=== PATIENT | female | born 1980 | race American Indian/Alaskan Native ===

== ENCOUNTER 2017-07-09 20:58 | Emergency (ER) | payer MEDICAID, OTHER ==
[2017-07-09] MEDS ORDERED: IPRATROPIUM/ALBUTEROL 3 ML NEB INH STA (21:10)
[2017-07-09] MEDS ORDERED: predniSONE 20 MG TABLET PO STA (21:16)
--- NOTE | 2017-07-09 21:17 | ED Physician Documentation ---
PD HPI DYSPNEA - Stated complaint Stated Complaint: SOA - Chief complaint Chief Complaint: Resp - History obtained from History obtained from: Patient - History of Present Illness Timing - onset: How many days ago (4) Timing - onset during: Rest Timing - details: Gradual onset, Still present Worsened by: Laying flat Associated symptoms: Cough, Wheezing. No: Fever Similar symptoms before: Has not had sx before Recently seen: Not recently seen - Additional information Additional information: Patient is a 37 year old female wiht no significant past medical history who is presenting to the emergency department for cough and chest pressure. patient states that her boyfriend had been sick with the flu, and she has had a persistent cough. Patient denies any fever or chills, exogenous estrogen, cigarette smoking recent travel or history of clots. Patient states that her breathing is worse when she lies flat but denies any exertional component. Review of Systems Constitutional: denies: Fever, Chills Eyes: reports: Reviewed and negative Ears: reports: Reviewed and negative Nose: denies: Rhinorrhea / runny nose, Congestion Throat: denies: Sore throat Cardiac: reports: Chest pain / pressure Respiratory: reports: Cough. denies: Hemoptysis, Wheezing GI: denies: Nausea, Vomiting, Diarrhea : reports: Reviewed and negative Skin: denies: Rash, Lesions Musculoskeletal: denies: Neck pain, Back pain, Extremity pain, Extremity swelling Neurologic: denies: Headache Psychiatric: reports: Reviewed and negative Endocrine: reports: Reviewed and negative Immunocompromised: denies: Immunocompromised PD PAST MEDICAL HISTORY - Present Medications Home Medications: Ambulatory Orders Medication Instructions Recorded Confirmed Albuterol Sulf [Ventolin Hfa 2 puffs INH Q4HR PRN #1 inhaler 07/09/17 Inhaler] predniSONE [Prednisone] 40 mg PO DAILY 5 Days tablet 07/09/17 - Allergies Allergies/Adverse Reactions: Allergies Allergy/AdvReac Type Severity Reaction Status Date / Time No Known Drug Allergies Allergy Verified 07/09/17 21:40 PD ED PE NORMAL - Vitals Vital signs reviewed: Yes - General General: Alert and oriented X 3, No acute distress - HEENT HEENT: Atraumatic, PERRL, Moist mucous membranes - Neck Neck: Supple, no meningeal sign, No JVD - Derm Derm: Normal color, Warm and dry, No rash - Extremities Extremities: No calf tenderness / cord - Neuro Neuro: Alert and oriented X 3, No motor deficit, No sensory deficit Eye Opening: Spontaneous Motor: Obeys Commands Verbal: Oriented GCS Score: 15 - Psych Psych: Normal mood PD ED PE EXPANDED - Cardiac Cardiac: Tachy - Respiratory Respiratory: Wheezing (minimal exertional wheeze) - Abdomen Abdomen: Other (obese) Results - Vitals Vitals: Vital Signs - 24 hr 07/09/17 07/09/17 21:00 22:00 Temperature 37.1 C Heart Rate 109 H 122 H Respiratory 18 18 Rate Blood Pressure 131/69 H O2 Saturation 98 Oxygen O2 Source Room air - EKG (time done) 2106 Rate: Rate (enter#) (109) Rhythm: Sinus tachycardia [place]: Normal Intervals: Normal IN, 2nd degree AVB type 1 Compare to prior EKG: Old EKG unavailable - Rads (name of study) chest x-ray Radiology: Final report received (normal) PD MEDICAL DECISION MAKING - ED course Complexity details: reviewed old records, reviewed results, re-evaluated patient , considered differential, d/w patient ED course: Patient was seen and examined at bedside. ekg was performed and was sinus tach. patient was sent for imaging. When patient returned she was treated with prednisone and duoneb. patient's chest x-ray was within normal limits. Patient responded well to therapy. Prescriptions were written. patient was stable for discharge with outpatient follow up. Departure - Departure Disposition: 01 Home, Self Care Clinical Impression: Bronchitis Instructions: ED Bronchitis Asthmatic Follow-Up: primary,care provider [Other] - Within 1 week Prescriptions: Albuterol Sulf [Ventolin Hfa Inhaler] 2 puffs INH Q4HR PRN #1 inhaler PRN Reason: Wheezing predniSONE [Prednisone] 40 mg PO DAILY 5 Days tablet Comments: Your diagnostics today were within normal limits. there is no sign of pneumonia. Your symptoms are likely viral in nature. Bronchitis can last for weeks at a time. You will be started on a short course of steroids and you can use the inhaler as needed. You can take over the counter cough and cold medications. You should follow up with your doctor if your symptoms persist. You may return to the emergency department at any time for new, worsening or uncontrollable symptoms.
--- NOTE | 2017-07-09 21:49 | XRAY Preliminary Report ---
Exam: XR CHEST 2 VIEW X-RAY IMPRESSION: Normal 2-view chest radiography. [facility] SITE ID: [id number]
--- NOTE | 2017-07-09 21:50 | XRAY Report ---
EXAM: CHEST RADIOGRAPHY EXAM DATE: 07/09/2017 09:46 PM. CLINICAL HISTORY: Productive cough. COMPARISON: None. TECHNIQUE: 2 views. FINDINGS: Lungs/Pleura: No focal opacities evident. No pleural effusion. No pneumothorax. Normal volumes. Mediastinum: Heart and mediastinal contours are unremarkable. Other: None. IMPRESSION: Normal 2-view chest radiography. [facility] Referring Provider Line: [phone] SITE ID: [id number]
[2017-07-09 22:32] VITALS: BP 100/50
== END 2017-07-09 23:00 | disposition home or self-care (01) ==
LOC: ED 20:58
DX: J40 Bronchitis, not specified as acute or chronic (principal); R00.0 Tachycardia, unspecified; I44.1 Atrioventricular block, second degree
CPT/HCPCS: 71046; 93005; 94640; 94664; 99283; 99284; J7512

== ENCOUNTER 2018-04-23 16:17 | Emergency (ER) | payer MEDICAID ==
--- NOTE | 2018-04-23 16:24 | ED Physician Documentation ---
PD HPI LOWER EXT INJURY - Stated complaint Stated Complaint: R TOE PX - History obtained from History obtained from: Patient - History of Present Illness PD HPI LOW EXT INJURY LOCATION: Right, Toe Type of injury: Blunt / blow Where injury occurred: Home Timing - onset: Today Timing - details: Abrupt onset Pain level max: 5 (with walking) Pain level now: 0 Improved by: Rest Worsened by: Moving Associated symptoms: Numbness Review of Systems Constitutional: reports: Reviewed and negative Cardiac: reports: Reviewed and negative Respiratory: reports: Reviewed and negative PD PAST MEDICAL HISTORY - Past Surgical History Past Surgical History: No - Allergies Allergies/Adverse Reactions: Allergies Allergy/AdvReac Type Severity Reaction Status Date / Time No Known Drug Allergies Allergy Verified 04/23/18 16:26 - Social History Does the pt smoke?: No Smoking Status: Never smoker Does the pt drink ETOH?: No Does the pt have substance abuse?: No - Immunizations Immunizations are current?: Yes PD ED PE NORMAL - Vitals Vital signs reviewed: Yes - General General: Alert and oriented X 3, No acute distress - Extremities Extremities: Other (The tip of the right great toe is tender but there is no deformity. She has partial but incomplete numbness especially on the medial side.) - Neuro Neuro: Alert and oriented X 3, Normal speech Results - Vitals Vitals: Vital Signs - 24 hr 04/23/18 16:20 Temperature 36.5 C Heart Rate 75 Respiratory 16 Rate Blood Pressure 151/83 H O2 Saturation 98 Oxygen O2 Source Room air PD MEDICAL DECISION MAKING - ED course ED course: 38-year-old woman with isolated injury to the right great toe without subungual hematoma. X-rays negative. Tim taped and given a fracture shoe. Departure - Departure Disposition: 01 Home, Self Care Clinical Impression: Sprain of toe, great, right Qualifiers: Encounter type: initial encounter Qualified Code(s): S93.501A - Unspecified sprain of right great toe, initial encounter Condition: Good Record reviewed to determine appropriate education?: Yes Instructions: ED Sprain Toe Comments: Tim tape as needed, wear the shoe as needed. Ibuprofen as needed for pain. Follow-up with your doctor in 2 weeks if not better. Your blood pressure was elevated today on check into the emergency department. This does not mean that you have hypertension, it is a common phenomenon to come to the emergency department and have elevated blood pressure. I recommend that you see your primary care physician within the week to have it rechecked when you are feeling better.
[2018-04-23 16:27] VITALS: BP 151/83
--- NOTE | 2018-04-23 17:24 | XRAY Report ---
Reason: R great toe inj Procedure Date: 04/23/2018 Accession Number: [id number] / [id number] Procedure: XR - Toe(s) RT CPT Code: FULL RESULT: EXAM: RIGHT TOE RADIOGRAPHY EXAM DATE: 04/23/2018 05:00 PM. CLINICAL HISTORY: Great toe pain COMPARISON: None. TECHNIQUE: 3 views. FINDINGS: Bones: No fracture or focal bony lesion. Joints: No evidence of dislocation. Soft Tissues: No unexpected soft tissue findings. IMPRESSION: No evidence of fracture or dislocation. [facility]
== END 2018-04-23 17:13 | disposition home or self-care (01) ==
LOC: ED 16:17
DX: S93.501A Unspecified sprain of right great toe, initial encounter (principal); W22.09XA Striking against other stationary object, initial encounter; Y92.009 Unspecified place in unspecified non-institutional (private) residence as the place of occurrence of the external cause; R03.0 Elevated blood-pressure reading, without diagnosis of hypertension
CPT/HCPCS: 73660; 99282; 99283

== ENCOUNTER 2022-07-21 23:53 | Emergency (ER) | payer MEDICAID, OTHER ==
[2022-07-22 01:02] LABS: BILIRUBIN,URINE NEGATIVE (NEGATIVE); GLUCOSE, URINE (UA) NEGATIVE (NEGATIVE); KETONES,URINE (UA) NEGATIVE (NEGATIVE); LEUKOCYTE ESTERASE, URINE SMALL (NEGATIVE); NITRITE,URINE POSITIVE (NEGATIVE); OCCULT BLOOD,URINE LARGE (NEGATIVE); PROTEIN,URINE NEGATIVE (NEGATIVE); UROBILINOGEN,URINE 0.2 (NORMAL) E.U./dL (NORMAL)
[2022-07-22 01:10] LABS: BACTERIA,URINE Moderate /HPF (None Seen); CLARITY,URINE SL. CLOUDY (CLEAR); HCG UR QUAL NEGATIVE; SQUAMOUS EPITHELIAL CELL,UR FEW Squamous (<= Few); WBC,URINE >25 /HPF (0-5); YEAST,URINE PRESENT
[2022-07-22] MEDS ORDERED: NITROFURANTOIN MACRO 100 MG CAPSULE PO STA (01:17)
[2022-07-22] MEDS ORDERED: PHENAZOPYRIDINE 100 MG TABLET PO STA (01:18)
--- NOTE | 2022-07-22 01:21 | ED Physician Documentation ---
PD HPI FEMALE - Stated complaint Stated Complaint: FEMALE - Chief complaint Chief Complaint: General - History obtained from History obtained from: Patient - Additional information Additional information: Patient is a 42-year-old female with no significant prior medical history presenting for evaluation of dysuria, urinary urgency starting earlier today. She denies vaginal bleeding or discharge. She denies back pain, fevers. She denies nausea or vomiting. Review of Systems Constitutional: denies: Fever Cardiac: denies: Chest pain / pressure Respiratory: denies: Dyspnea GI: denies: Abdominal Pain, Vomiting, Diarrhea : reports: Dysuria. denies: Discharge Musculoskeletal: denies: Back pain Neurologic: denies: Headache PD PAST MEDICAL HISTORY - Past Medical History Past Medical History: No Cardiovascular: None Respiratory: None Neuro: None Endocrine/Autoimmune: None GI: None CORRECTIONAL MANAGER: None : None HEENT: None Psych: None Musculoskeletal: None Derm: None - Past Surgical History Past Surgical History: No /CORRECTIONAL MANAGER: section - Present Medications Home Medications: Ambulatory Orders Medication Instructions Recorded Confirmed Nitrofurantoin [Macrobid] 1 cap PO BID #10 cap 07/22/22 Phenazopyridine HCl [Pyridium] 200 mg PO TID PRN #6 tablet 07/22/22 - Allergies Allergies/Adverse Reactions: Allergies Allergy/AdvReac Type Severity Reaction Status Date / Time No Known Drug Allergies Allergy Verified 07/22/22 00:03 - Social History Does the pt smoke?: No Smoking Status: Never smoker Does the pt drink ETOH?: No Does the pt have substance abuse?: No - Immunizations Immunizations are current?: Yes - POLST Patient has POLST: No PD ED PE NORMAL - General General: Alert and oriented X 3, No acute distress, Well developed/nourished - HEENT HEENT: Atraumatic - Neck Neck: Supple, no meningeal sign - Cardiac Cardiac: RRR - Respiratory Respiratory: No respiratory distress - Abdomen Abdomen: Normal bowel sounds, Soft, Non tender, Non distended - Derm Derm: Warm and dry Results - Vitals Vitals: Vital Signs - 24 hr 07/22/22 07/22/22 07/22/22 00:02 00:04 01:32 Temperature 35.8 C L Heart Rate 78 70 Respiratory 16 16 16 Rate Blood Pressure 136/84 H 129/75 O2 Saturation 100 100 Oxygen O2 Source Room air - Labs Labs: Laboratory Tests 07/22/22 07/22/22 00:00 00:00 Urine Color YELLOW Urine Clarity SL. CLOUDY Urine pH 6.0 Ur Specific [place] >=1.030 H Urine Protein NEGATIVE Urine Glucose (UA) NEGATIVE Urine Ketones NEGATIVE Urine Occult Blood LARGE H Urine Nitrite POSITIVE H Urine Bilirubin NEGATIVE Urine Urobilinogen 0.2 (NORMAL) Ur Leukocyte Esterase SMALL H Urine RBC 11-25 H Urine WBC >25 H Ur Squamous Epith Cells FEW Squamous Urine Bacteria Moderate H Urine Yeast PRESENT Ur Microscopic Review INDICATED Urine Culture Comments INDICATED Urine HCG, Qual NEGATIVE PD Medical Decision Making - ED course Complexity details: reviewed results, d/w patient ED course: Patient presenting for evaluation of dysuria and urinary urgency. Her vital signs are stable. Her abdominal exam is benign. She denies any pelvic pain, vaginal bleeding or discharge. Urine analysis was ordered. Her test is negative. Interpretation of the UA suggest an infection and I will start the patient on Macrobid and Pyridium. Patient is counseled regarding her diagnosis and need for treatment with an antibiotic. She is well-appearing, has a benign abdominal exam, does not appear septic.No symptoms to suggest a kidney stone. She is advised on concerning symptoms to return for. Departure - Departure Disposition: 01 Home, Self Care Clinical Impression: UTI (urinary tract infection) Condition: Stable Instructions: ED UTI Cystitis Female Prescriptions: Nitrofurantoin [Macrobid] 1 cap PO BID #10 cap Phenazopyridine HCl [Pyridium] 200 mg PO TID PRN #6 tablet PRN Reason: dysuria Comments: Your urine test shows that you have a urinary tract infection. I am starting you on an antibiotic Called Macrobid and also Writing a prescription for medication called Pyridium which will help with the burning sensation. [email or web address] [place]. Please make sure to complete the course of the antibiotic. If you develop any worsening symptoms such as fever, increased pain or have any new concerns please consider return to the emergency department. We will send your urine for a culture. If for some reason you need a different antibiotic we will notify you and call it in. Discharge Date/Time: 07/22/22 01:32
[2022-07-22 01:33] VITALS: BP 129/75
== END 2022-07-22 01:32 | disposition home or self-care (01) ==
LOC: ED 23:53
DX: N39.0 Urinary tract infection, site not specified (principal)
CPT/HCPCS: 81001; 81025; 87077; 87086; 87181; 99283; A9270; 81003